=== PATIENT | male | born 1975 | race Caucasian/White ===

== ENCOUNTER 2017-03-11 15:58 | Emergency (ER) | payer OTHER ==
[~2017-03-11] VITALS: Ht 167.6 cm; Wt 76.7 kg
[~2017-03-11 15:58] MED LIST: WELLBUTRIN SR150 MG PO
[2017-03-11 16:59] LABS: HEMATOCRIT 39.3 % (38.0-50.0); MCH 30.9 PG (29.0-34.0); MCHC 33.8 G/DL (30.0-36.0); MCV 91.2 FL (86-99); MEAN PLAT.VOLUME 9.3 uM^3 (9.0-12.4); PLATELET COUNT 271 K/uL (156-360); RBC DIS.WIDTH-CV 12.7 % (11.8-14.6); RBC DIS.WIDTH-SD 42.5 % (39-53); RED BLOOD COUNT 4.31 M/uL (4.00-5.50); WHITE BLOOD COUNT 6.8 K/uL (4.1-10.2)
[2017-03-11 17:07] LABS: CHLORIDE 105 mEq/L (99-109)
[2017-03-11 17:08] LABS: POTASSIUM 4.3 mEq/L (3.7-5.4); SODIUM 138 mEq/L (136-147)
[2017-03-11 17:10] LABS: GLUCOSE 119 mg/dL (70-99)
[2017-03-11 17:11] LABS: ANION GAP 9 MEQ/L (2-14)
[2017-03-11 17:12] LABS: TOTAL BILIRUBIN 0.3 mg/dL (0.0-1.0)
[2017-03-11 17:13] LABS: ALKALINE PHOSPHATASE 77 IU/L (3-129); GFR ESTIMATE (CALCULATED) > 59 mL/min/
[2017-03-11 17:15] LABS: UREA NITROGEN (BUN) 12 mg/dL (9-23)
[2017-03-11 17:47] VITALS: BP 143/94
== END 2017-03-11 17:48 | disposition left against medical advice (07) ==
LOC: EME 15:58
PROVIDERS: Emergency Medicine
DX: R56.9 Unspecified convulsions (principal); F17.200 Nicotine dependence, unspecified, uncomplicated
CPT/HCPCS: 80053; 81003; 85027; 93005; 99281; 99284; J7030